=== PATIENT | male | born 1985 | race African-American/Black ===

== ENCOUNTER 2021-04-06 14:31 | Emergency (ER) | payer OTHER ==
[~2021-04-06] VITALS: Ht 167.6 cm; Wt 82.0 kg
[2021-04-06 15:43] LABS: BASOPHILS % 0.8 % (0.0-2.0); EOSINOPHILS % 1.5 % (0.0-5.0); HEMATOCRIT. 45.4 % (42.0-52.0); HEMOGLOBIN. 15.5 g/dL (14.0-18.0); LYMPHOCYTES % 38.2 % (20.0-50.0); MEAN CORPUSCULAR HEMOGLOBIN 32.3 pg (28.0-32.0); MEAN CORPUSCULAR VOLUME 94.6 fL (80.0-94.0); MEAN PLATELET VOLUME 8.5 fl (7.4-10.4); MONOCYTES % 12.4 % (2.0-8.0); NEUTROPHILS % 47.1 % (40.0-76.0); PLATELET 299 x1000/uL (130-400)
[2021-04-06 15:47] LABS: CHLORIDE 109 mEq/L (98-107)
[2021-04-06 15:52] LABS: ETHANOL BLOOD < 10 mg/dL
[2021-04-06 17:50] LABS: CLARITY URINE CLEAR (CLEAR); COLOR URINE YELLOW (YELLOW); KETONES URINE 1+ (NEGATIVE); LEUKOCYTE ESTERASE URINE NEGATIVE (NEGATIVE); NITRITE URINE NEGATIVE (NEGATIVE); OCCULT BLOOD URINE NEGATIVE (NEGATIVE); PH URINE 6.5 (4.5-8.0); PROTEIN URINE NEGATIVE (NEGATIVE); SPECIFIC GRAVITY URINE 1.031 (1.005-1.030)
[2021-04-06 18:01] LABS: *BENZODIAZEPINES SCREEN URINE NEGATIVE (NEGATIVE); *COCAINE SCREEN URINE NEGATIVE (NEGATIVE); METHADONE URINE SCREEN NEGATIVE (NEGATIVE); OPIATES URINE SCREEN NEGATIVE (NEGATIVE)
[2021-04-06 18:02] LABS: *AMPHETAMINES SCREEN URINE PRESUMTIVE POSITIVE (NEGATIVE); *BARBITURATES SCREEN URINE NEGATIVE (NEGATIVE); CANNABINOID URINE SCREEN PRESUMTIVE POSITIVE (NEGATIVE); PHENCYCLIDINE URINE SCREEN PRESUMTIVE POSITIVE (NEGATIVE)
[2021-04-07 00:45] VITALS: BP 137/85
== END 2021-04-07 01:07 | disposition home or self-care (01) ==
LOC: ER 14:41
DX: F99 Mental disorder, not otherwise specified (principal); Z86.59 Personal history of other mental and behavioral disorders
CPT/HCPCS: 36415; 80053; 80305; 80307; 80320; 80329; 81003; 85025; 99291; G0480

== ENCOUNTER 2022-02-08 23:15 | Emergency (ER) | payer MEDICAID, OTHER ==
[~2022-02-08] VITALS: Ht 172.7 cm; Wt 70.0 kg
[2022-02-09 00:51] LABS: BASOPHILS % 0.9 % (0.0-2.0); EOSINOPHILS % 2.8 % (0.0-5.0); HEMATOCRIT. 45.9 % (42.0-52.0); HEMOGLOBIN. 15.8 g/dL (14.0-18.0); LYMPHOCYTES % 32.6 % (20.0-50.0); MEAN CORPUSCULAR HEMOGLOBIN 31.1 pg (28.0-32.0); MEAN CORPUSCULAR VOLUME 90.3 fL (80.0-94.0); MONOCYTES % 10.1 % (2.0-8.0); NEUTROPHILS % 53.6 % (40.0-76.0); PLATELET 310 x1000/uL (130-400); RED BLOOD CELL COUNT 5.08 mill/uL (4.7-6.1); RED CELL DISTRIBUTION WIDTH 13.2 % (11.6-14.6)
[2022-02-09 00:58] LABS: CHLORIDE 103 mEq/L (98-107)
[2022-02-09 01:06] LABS: ETHANOL BLOOD < 10 mg/dL
[2022-02-09 04:10] VITALS: BP 128/87
== END 2022-02-09 04:30 | disposition home or self-care (01) ==
LOC: ER 23:15
DX: R10.9 Unspecified abdominal pain (principal); T43.625A Adverse effect of amphetamines, initial encounter; Y92.89 Other specified places as the place of occurrence of the external cause; F41.9 Anxiety disorder, unspecified; F20.9 Schizophrenia, unspecified
CPT/HCPCS: 36415; 74176; 80053; 80320; 85025; 99284; G0480

== ENCOUNTER 2022-02-09 10:02 | Emergency (ER) | payer MEDICAID, OTHER ==
[~2022-02-09] VITALS: Ht 170.2 cm; Wt 82.0 kg
[2022-02-09 10:11] VITALS: BP 114/79
== END 2022-02-09 11:47 | disposition home or self-care (01) ==
LOC: ER 10:02
DX: Z04.6 Encounter for general psychiatric examination, requested by authority (principal); Z59.00 Homelessness unspecified
CPT/HCPCS: 99281

== ENCOUNTER 2022-03-04 22:18 | Emergency (ER) | payer OTHER ==
[~2022-03-04] VITALS: Ht 170.2 cm; Wt 68.0 kg
[2022-03-04 22:22] VITALS: BP 141/91
== END 2022-03-05 04:52 | disposition left against medical advice (07) ==
LOC: ER 22:18
DX: Z53.21 Procedure and treatment not carried out due to patient leaving prior to being seen by health care provider (principal); R00.0 Tachycardia, unspecified
CPT/HCPCS: 93005

== ENCOUNTER 2024-03-11 20:26 | Inpatient (IN) | payer MEDICAID, OTHER ==
[~2024-03-11] VITALS: Ht 170.2 cm; Wt 72.0 kg
[2024-03-11 20:43] VITALS: O2SAT 99
[2024-03-11] MEDS ORDERED: VANCOMYCIN 1G PREMIX 200 ML IV ONE (21:45)
[2024-03-11 22:58] LABS: BASOPHILS % 0.6 % (0.0-2.0); EOSINOPHILS % 1.6 % (0.0-5.0); HEMATOCRIT. 37.8 % (42.0-52.0); HEMOGLOBIN. 12.4 g/dL (14.0-18.0); MEAN CORPUSCULAR HEMOGLOBIN 29.4 pg (28.0-32.0); MEAN CORPUSCULAR HGB CONC 32.7 g/dL (31.0-37.0); MEAN CORPUSCULAR VOLUME 89.9 fL (80.0-94.0); MEAN PLATELET VOLUME 7.3 fl (7.4-10.4); MONOCYTES % 5.1 % (2.0-8.0); NEUTROPHILS % 61.7 % (40.0-76.0); PLATELET 429 x1000/uL (130-400); RED BLOOD CELL COUNT 4.21 mill/uL (4.7-6.1); RED CELL DISTRIBUTION WIDTH 12.7 % (11.6-14.6); WHITE BLOOD COUNT 8.1 x1000/uL (4.5-11.0)
[2024-03-11 23:04] LABS: CHLORIDE 102 mEq/L (98-107); POTASSIUM 3.5 mEq/L (3.5-5.1); SODIUM 138 mEq/L (136-145)
[2024-03-11 23:05] LABS: CALCIUM 9.4 mg/dL (8.7-10.4); CARBON DIOXIDE 30 mEq/L (21-32)
[2024-03-11 23:10] LABS: CREATININE 0.7 mg/dL (0.6-1.3); GLUCOSE 104 mg/dL (70-105)
[2024-03-11 23:11] LABS: INR 1.1; PROTHROMBIN TIME 12.1 sec (9.6-11.0)
[2024-03-11 23:12] LABS: UREA NITROGEN BLOOD < 5 mg/dL (9-23)
[2024-03-11] MEDS: PIPERACILLIN/TAZO 3.375G/50ML 50 ML IV ONE (23:44)
[2024-03-12] MEDS: SODIUM CHLORIDE 0.9% 1000ML BAG (SEPSIS BOLUS) IV ONE (00:32)
[2024-03-12] MEDS: VANCOMYCIN 1G PREMIX 200 ML IV NR (02:20)
[2024-03-12] MEDS ORDERED: DOCUSATE SODIUM 100MG CAPSULE PO PRN (02:30)
[2024-03-12] MEDS ORDERED: ACETAMINOPHEN 650MG/20.3ML UDC GT PRN (02:30)
[2024-03-12] MEDS ORDERED: IPRATROPIUM/ALBUTEROL 0.5-3(2.5)MG/3ML NEB HHN PRN (02:30)
[2024-03-12] MEDS ORDERED: ONDANSETRON HCL 4MG/2ML INJ IV PRN (02:30)
[2024-03-12] MEDS ORDERED: CLONIDINE 0.1MG TABLET PO PRN (02:30)
[2024-03-12] MEDS ORDERED: GUAIFENESIN 200MG/10ML SUGAR FREE UDC PO PRN (02:30)
[2024-03-12] MEDS ORDERED: CEFTRIAXONE 1GM/50ML 50 ML IV SCH (06:00)
[2024-03-12] MEDS: PIPERACILLIN/TAZO 3.375G/50ML 50 ML IV SCH (07:39)
[2024-03-12 09:22] VITALS: BP 101/96; PULSE 92; RESP 17; TEMP 98.2
[2024-03-12] MEDS: PANTOPRAZOLE SODIUM 40 MG/VIAL IV SCH (09:34)
[2024-03-12 10:38] LABS: BASOPHILS % 0.5 % (0.0-2.0); EOSINOPHILS % 2.1 % (0.0-5.0); HEMATOCRIT. 35.9 % (42.0-52.0); HEMOGLOBIN. 11.8 g/dL (14.0-18.0); LYMPHOCYTES % 24.6 % (20.0-50.0); MEAN CORPUSCULAR HEMOGLOBIN 29.4 pg (28.0-32.0); MEAN CORPUSCULAR VOLUME 89.3 fL (80.0-94.0); MEAN PLATELET VOLUME 7.6 fl (7.4-10.4); MONOCYTES % 5.2 % (2.0-8.0); NEUTROPHILS % 67.6 % (40.0-76.0); PLATELET 382 x1000/uL (130-400); RED BLOOD CELL COUNT 4.02 mill/uL (4.7-6.1); RED CELL DISTRIBUTION WIDTH 12.7 % (11.6-14.6); WHITE BLOOD COUNT 6.8 x1000/uL (4.5-11.0)
[2024-03-12 10:54] LABS: CHLORIDE 104 mEq/L (98-107); POTASSIUM 3.7 mEq/L (3.5-5.1); SODIUM 139 mEq/L (136-145)
[2024-03-12 10:55] LABS: CALCIUM 9.1 mg/dL (8.7-10.4); CARBON DIOXIDE 30 mEq/L (21-32)
[2024-03-12 11:00] LABS: CREATININE 0.6 mg/dL (0.6-1.3); GLUCOSE 127 mg/dL (70-105); IRON 46 ug/dL (65-175); TRIGLYCERIDE 59 mg/dL (0-150); UREA NITROGEN BLOOD 6 mg/dL (9-23)
[2024-03-12 11:01] LABS: LDL CHOLESTEROL 75 mg/dL (5-100)
[2024-03-12 11:02] LABS: CHOLESTEROL 126 mg/dL (<200); CREATINE KINASE 58 IU/L (46-171); HDL CHOLESTEROL 43 mg/dL (>55)
[2024-03-12 11:03] LABS: TOTAL IRON BINDING CAPACITY 284 ug/dl (250-425)
[2024-03-12 11:04] LABS: T4 FREE 1.53 ng/dL (0.89-1.76)
[2024-03-12 11:05] LABS: THYROID STIMULATING HORMONE 1.19 uIU/mL (0.55-4.78)
[2024-03-12 11:24] LABS: TROPONIN I HIGH SENSITIVITY < 4 ng/L (3.0-53)
[2024-03-12 22:46] LABS: CREATINE KINASE 67 IU/L (46-171); TROPONIN I HIGH SENSITIVITY < 4 ng/L (3.0-53)
[2024-03-14] MEDS ORDERED: LINE600T11 MT (12:49)
== END 2024-03-12 11:09 | disposition left against medical advice (07) | DRG 383 ==
LOC: ER 20:26 → EDBEDREQTM 03-12 00:04 → EDBEDREQ 03-12 00:04 → 5WST 03-12 03:59
PROVIDERS: ADMIT Internal Medicine; ATTEND Internal Medicine
DX: L03.116 Cellulitis of left lower limb (principal); D64.9 Anemia, unspecified; E78.5 Hyperlipidemia, unspecified; F17.210 Nicotine dependence, cigarettes, uncomplicated; Z53.29 Procedure and treatment not carried out because of patient's decision for other reasons; F20.9 Schizophrenia, unspecified; J45.909 Unspecified asthma, uncomplicated; Z99.3 Dependence on wheelchair
CPT/HCPCS: 36415; 73610; 80048; 80061; 82550; 82728; 83540; 83550; 83605; 84145; 84439; 84443; 84484; 85025; 86850; 86900; 93970; 99291; J2470; J2543; J3370; J7030

== ENCOUNTER 2024-03-16 19:29 | Inpatient (IN) | payer MEDICAID ==
[~2024-03-16] VITALS: Ht 170.2 cm; Wt 72.6 kg
[~2024-03-16 19:29] MED LIST: LINE600T11 MT
[2024-03-16 19:45] VITALS: O2SAT 99
[2024-03-16 20:00] VITALS: BP 117/81; PULSE 97; RESP 18; TEMP 97.9
[2024-03-16 20:18] LABS: BASOPHILS % 0.7 % (0.0-2.0); HEMOGLOBIN. 11.4 g/dL (14.0-18.0); LYMPHOCYTES % 29.7 % (20.0-50.0); MEAN CORPUSCULAR HEMOGLOBIN 30.9 pg (28.0-32.0); MEAN CORPUSCULAR HGB CONC 34.6 g/dL (31.0-37.0); MEAN CORPUSCULAR VOLUME 89.3 fL (80.0-94.0); MEAN PLATELET VOLUME 7.6 fl (7.4-10.4); MONOCYTES % 9.8 % (2.0-8.0); NEUTROPHILS % 56.8 % (40.0-76.0); PLATELET 346 x1000/uL (130-400); RED BLOOD CELL COUNT 3.69 mill/uL (4.7-6.1); RED CELL DISTRIBUTION WIDTH 12.9 % (11.6-14.6); WHITE BLOOD COUNT 7.5 x1000/uL (4.5-11.0)
[2024-03-16 20:25] LABS: CHLORIDE 104 mEq/L (98-107); POTASSIUM 3.9 mEq/L (3.5-5.1); SODIUM 139 mEq/L (136-145)
[2024-03-16 20:26] LABS: CARBON DIOXIDE 30 mEq/L (21-32)
[2024-03-16 20:27] LABS: CALCIUM 8.9 mg/dL (8.7-10.4)
[2024-03-16] MEDS: CEFTRIAXONE 1GM/50ML 50 ML IV ONE (20:27)
[2024-03-16 20:32] LABS: CREATININE 0.7 mg/dL (0.6-1.3); GLUCOSE 102 mg/dL (70-105); UREA NITROGEN BLOOD 13 mg/dL (9-23)
[2024-03-16] MEDS: VANCOMYCIN 1.5GM/250ML 250 ML IV SCH (22:24)
[2024-03-16] MEDS ORDERED: IPRATROPIUM/ALBUTEROL 0.5-3(2.5)MG/3ML NEB HHN PRN (22:30)
[2024-03-16] MEDS ORDERED: ACETAMINOPHEN 325MG TABLET PO PRN ×2 (22:30)
[2024-03-16] MEDS ORDERED: GUAIFENESIN 200MG/10ML SUGAR FREE UDC PO PRN (22:30)
[2024-03-16] MEDS ORDERED: CLONIDINE 0.1MG TABLET PO PRN (22:30)
[2024-03-16] MEDS ORDERED: ONDANSETRON HCL 4MG/2ML INJ IV PRN (22:30)
[2024-03-16] MEDS ORDERED: MAGNESIUM/ALUMINUM HYDROXIDE/SIMETHICONE 30ML UDC PO PRN (22:30)
[2024-03-16] MEDS ORDERED: DOCUSATE SODIUM 100MG CAPSULE PO PRN (22:30)
[2024-03-17] VITALS: BP 117/81; PULSE 97; RESP 18; TEMP 97.9
[2024-03-17 00:28] VITALS: BP 117/81; PULSE 97; RESP 18; TEMP 97.9
[2024-03-17] MEDS: MVI, ADULT NO.1 10 ML, FOLIC ACID 1 MG, THIAMINE HCL 100 MG in SODIUM CHLORIDE 0.9% 1,0... IV NR (01:16)
[2024-03-17 04:00] VITALS: BP_SYST 118; BP_SYST 127; BP_DIAS 69; BP_DIAS 76; PULSE 72; PULSE 80; RESP 18; TEMP 97.6; TEMP 97.7
[2024-03-17] MEDS ORDERED: VANCOMYCIN 1G PREMIX 200 ML IV SCH (06:00)
[2024-03-17 07:03] LABS: CHLORIDE 104 mEq/L (98-107); POTASSIUM 3.8 mEq/L (3.5-5.1); SODIUM 139 mEq/L (136-145)
[2024-03-17 07:04] LABS: CALCIUM 9.1 mg/dL (8.7-10.4); CARBON DIOXIDE 29 mEq/L (21-32)
[2024-03-17 07:09] LABS: CREATININE 0.6 mg/dL (0.6-1.3); GLUCOSE 101 mg/dL (70-105); UREA NITROGEN BLOOD 11 mg/dL (9-23)
[2024-03-17 07:11] LABS: PHOSPHORUS 3.5 mg/dL (2.5-4.9)
[2024-03-17 07:35] LABS: BASOPHILS % 0.4 % (0.0-2.0); EOSINOPHILS % 2.3 % (0.0-5.0); HEMATOCRIT. 30.9 % (42.0-52.0); HEMOGLOBIN. 10.6 g/dL (14.0-18.0); LYMPHOCYTES % 24.4 % (20.0-50.0); MEAN CORPUSCULAR HEMOGLOBIN 30.6 pg (28.0-32.0); MEAN CORPUSCULAR HGB CONC 34.2 g/dL (31.0-37.0); MEAN CORPUSCULAR VOLUME 89.3 fL (80.0-94.0); MEAN PLATELET VOLUME 7.7 fl (7.4-10.4); NEUTROPHILS % 62.9 % (40.0-76.0); PLATELET 289 x1000/uL (130-400); RED BLOOD CELL COUNT 3.46 mill/uL (4.7-6.1); RED CELL DISTRIBUTION WIDTH 12.9 % (11.6-14.6); WHITE BLOOD COUNT 5.7 x1000/uL (4.5-11.0)
[2024-03-17 08:00] VITALS: BP 124/66; PULSE 78; RESP 18; TEMP 97.2
[2024-03-17] MEDS: NICOTINE 7MG PATCH TD SCH (09:04)
[2024-03-17] MEDS: FERROUS SULFATE 325MG TABLET PO SCH (09:04)
[2024-03-17] MEDS: ENOXAPARIN 40MG/0.4ML SYR SUBCUT SCH (09:05)
[2024-03-17] MEDS ORDERED: CEFTRIAXONE 1GM/50ML 50 ML IV SCH (10:00)
[2024-03-17] MEDS: MAGNESIUM 1 G PREMIX 100 ML IV NR (12:09)
[2024-03-17 16:00] VITALS: BP 131/91; PULSE 101; RESP 20; TEMP 97.4
[2024-03-17] MEDS: KETOROLAC 15MG/ML VIAL IV PRN (17:31)
[2024-03-17 20:00] VITALS: BP 114/70; PULSE 74; RESP 18; TEMP 98
[2024-03-18] VITALS: BP 129/78; PULSE 82; RESP 18; TEMP 98
[2024-03-18 04:00] VITALS: BP 108/71; PULSE 80; RESP 19; TEMP 97.5
[2024-03-18 07:35] LABS: BASOPHILS % 0.5 % (0.0-2.0); EOSINOPHILS % 2.7 % (0.0-5.0); HEMATOCRIT. 32.5 % (42.0-52.0); HEMOGLOBIN. 11.1 g/dL (14.0-18.0); LYMPHOCYTES % 33.4 % (20.0-50.0); MEAN CORPUSCULAR HEMOGLOBIN 30.6 pg (28.0-32.0); MEAN CORPUSCULAR HGB CONC 34.2 g/dL (31.0-37.0); MEAN CORPUSCULAR VOLUME 89.6 fL (80.0-94.0); MEAN PLATELET VOLUME 7.7 fl (7.4-10.4); NEUTROPHILS % 54.4 % (40.0-76.0); PLATELET 296 x1000/uL (130-400); RED BLOOD CELL COUNT 3.62 mill/uL (4.7-6.1); RED CELL DISTRIBUTION WIDTH 12.8 % (11.6-14.6); WHITE BLOOD COUNT 4.7 x1000/uL (4.5-11.0)
[2024-03-18 07:42] LABS: CARBON DIOXIDE 30 mEq/L (21-32); CHLORIDE 106 mEq/L (98-107); POTASSIUM 3.9 mEq/L (3.5-5.1); SODIUM 140 mEq/L (136-145)
[2024-03-18 07:43] LABS: CALCIUM 9.5 mg/dL (8.7-10.4)
[2024-03-18 07:47] LABS: CREATININE 0.6 mg/dL (0.6-1.3)
[2024-03-18 07:48] LABS: GLUCOSE 98 mg/dL (70-105); UREA NITROGEN BLOOD 7 mg/dL (9-23)
[2024-03-18 07:50] LABS: PHOSPHORUS 4.8 mg/dL (2.5-4.9)
[2024-03-18 08:00] VITALS: BP 118/75; PULSE 69; RESP 20; TEMP 98.2
[2024-03-18] MEDS ORDERED: DICLOFENAC SODIUM 75MG DR TABLET PO SCH (11:00)
[2024-03-18 12:00] VITALS: BP 120/69; PULSE 67; RESP 20; TEMP 98.4
[2024-03-18 16:00] VITALS: BP 117/65; PULSE 70; RESP 20; TEMP 98.2
== END 2024-03-18 16:30 | disposition left against medical advice (07) | DRG 344 ==
LOC: ER 19:29 → 6EST 21:29
PROVIDERS: ADMIT Preventive Medicine Clinical Informatics; ATTEND Preventive Medicine Clinical Informatics
DX: M00.862 Arthritis due to other bacteria, left knee (principal); L03.116 Cellulitis of left lower limb; D50.9 Iron deficiency anemia, unspecified; D72.821 Monocytosis (symptomatic); F17.210 Nicotine dependence, cigarettes, uncomplicated; F20.9 Schizophrenia, unspecified; M24.562 Contracture, left knee; F31.9 Bipolar disorder, unspecified; J45.909 Unspecified asthma, uncomplicated; Z53.29 Procedure and treatment not carried out because of patient's decision for other reasons; Z59.00 Homelessness unspecified; Z99.3 Dependence on wheelchair
CPT/HCPCS: 36415; 73560; 73630; 80048; 80320; 83036; 83735; 83880; 84100; 84145; 85025; 85651; 93971; 97166; 99285; J0696; J1650; J1885; J3370; J3411; J3475; J3490; J7030; G0480

== ENCOUNTER 2024-06-04 18:23 | Emergency (ER) | payer MEDICAID, OTHER ==
[~2024-06-04] VITALS: Ht 170.2 cm; Wt 77.0 kg
[2024-06-04 18:26] VITALS: O2SAT 99
[2024-06-04 18:32] VITALS: BP 139/73; PULSE 84; RESP 18; TEMP 98.1; O2SAT 98
== END 2024-06-04 23:46 | disposition left against medical advice (07) ==
LOC: ER 18:23
DX: M25.562 Pain in left knee (principal); Z53.21 Procedure and treatment not carried out due to patient leaving prior to being seen by health care provider
CPT/HCPCS: 71045; 93005

== ENCOUNTER 2024-06-05 12:40 | Emergency (ER) | payer MEDICAID, OTHER ==
[~2024-06-05] VITALS: Ht 172.7 cm; Wt 81.0 kg
[2024-06-05 12:44] VITALS: O2SAT 99
[2024-06-05 13:08] VITALS: BP 134/83; PULSE 118; RESP 18; TEMP 98.1; O2SAT 98
[2024-06-06] MEDS ORDERED: TOPUD PO (05:54)
== END 2024-06-05 13:27 | disposition left against medical advice (07) ==
LOC: ER 12:49
DX: M25.562 Pain in left knee (principal); Z53.21 Procedure and treatment not carried out due to patient leaving prior to being seen by health care provider

== ENCOUNTER 2024-06-06 01:29 | Emergency (ER) | payer OTHER ==
[~2024-06-06] VITALS: Ht 170.2 cm; Wt 81.0 kg
[2024-06-06 01:38] VITALS: O2SAT 98
[2024-06-06 02:14] VITALS: BP 122/79; PULSE 80; RESP 16; TEMP 98; O2SAT 100
[2024-06-06] MEDS ORDERED: TOPUD PO (05:54)
== END 2024-06-06 07:03 | disposition home or self-care (01) ==
LOC: ER 01:29
DX: R60.0 Localized edema (principal); J45.909 Unspecified asthma, uncomplicated
CPT/HCPCS: 99282

== ENCOUNTER 2024-06-06 10:51 | Emergency (ER) | payer OTHER ==
[~2024-06-06] VITALS: Ht 170.2 cm; Wt 80.0 kg
[~2024-06-06 10:51] MED LIST changes: +TOPUD PO
[2024-06-06 10:59] VITALS: O2SAT 99
[2024-06-06 11:01] VITALS: BP 164/67; PULSE 80; RESP 16; TEMP 98.1; O2SAT 100
[2024-06-06 12:32] LABS: HEMOGLOBIN. 13.8 g/dL (14.0-18.0); LYMPHOCYTES % 26.9 % (20.0-50.0); MEAN CORPUSCULAR HEMOGLOBIN 29.4 pg (28.0-32.0); MEAN CORPUSCULAR HGB CONC 33.7 g/dL (31.0-37.0); MEAN CORPUSCULAR VOLUME 87.2 fL (80.0-94.0); MONOCYTES % 6.6 % (2.0-8.0); NEUTROPHILS % 61.5 % (40.0-76.0); PLATELET 359 x1000/uL (130-400); RED CELL DISTRIBUTION WIDTH 15.7 % (11.6-14.6); WHITE BLOOD COUNT 6.7 x1000/uL (4.5-11.0)
[2024-06-06 12:40] LABS: CHLORIDE 104 mEq/L (98-107); POTASSIUM 3.7 mEq/L (3.5-5.1); SODIUM 142 mEq/L (136-145)
[2024-06-06 12:41] LABS: CARBON DIOXIDE 31 mEq/L (21-32)
[2024-06-06 12:42] LABS: CALCIUM 9.4 mg/dL (8.7-10.4)
[2024-06-06 12:46] LABS: CREATININE 0.8 mg/dL (0.6-1.3); GLUCOSE 91 mg/dL (70-105)
[2024-06-06 12:47] LABS: UREA NITROGEN BLOOD 13 mg/dL (9-23)
[2024-06-06 12:48] LABS: ALANINE AMINOTRANSFERASE 17 IU/L (10-49); ALBUMIN 4.1 g/dL (3.2-4.8); ASPARTATE AMINOTRANSFERASE 19 IU/L (<34)
[2024-06-06 12:49] LABS: BILIRUBIN TOTAL 0.2 mg/dL (0.1-1.0); PROTEIN TOTAL 7.8 g/dL (6.0-8.3)
[2024-06-06 12:51] LABS: TROPONIN I HIGH SENSITIVITY < 4 ng/L (3.0-53)
== END 2024-06-06 13:43 | disposition home or self-care (01) ==
LOC: ER 10:57
DX: M79.605 Pain in left leg (principal); M79.604 Pain in right leg; R60.0 Localized edema; J45.909 Unspecified asthma, uncomplicated
CPT/HCPCS: 36415; 80053; 83880; 84484; 85025; 85379; 93970; 99284

== ENCOUNTER 2024-06-06 21:59 | Emergency (ER) | payer OTHER ==
[~2024-06-06] VITALS: Ht 172.7 cm; Wt 75.0 kg
[2024-06-06 22:05] VITALS: BP 156/73; PULSE 85; TEMP 97.4; O2SAT 99
[2024-06-06 22:45] VITALS: RESP 18
== END 2024-06-06 23:05 | disposition home or self-care (01) ==
LOC: ER 21:59
DX: M79.10 Myalgia, unspecified site (principal)
CPT/HCPCS: 99281

== ENCOUNTER 2024-06-21 01:45 | Emergency (ER) | payer OTHER ==
[~2024-06-21] VITALS: Ht 172.7 cm; Wt 71.0 kg
[2024-06-21 02:06] VITALS: BP 141/84; TEMP 98.4; O2SAT 99
[2024-06-21 02:08] VITALS: PULSE 102
== END 2024-06-21 06:36 | disposition home or self-care (01) ==
LOC: ER 02:17
DX: G89.29 Other chronic pain (principal); G40.909 Epilepsy, unspecified, not intractable, without status epilepticus; J45.909 Unspecified asthma, uncomplicated
CPT/HCPCS: 99281

== ENCOUNTER 2024-06-25 02:58 | Emergency (ER) | payer OTHER ==
[~2024-06-25] VITALS: Ht 170.2 cm; Wt 78.0 kg
[2024-06-25 03:01] VITALS: O2SAT 100
[2024-06-25] MEDS ORDERED: TOPUD PO (05:13)
[2024-06-25 06:40] VITALS: BP 115/72; PULSE 81; RESP 16; TEMP 36.78072; O2SAT 99
== END 2024-06-25 06:57 | disposition home or self-care (01) ==
LOC: ER 02:58
DX: M25.562 Pain in left knee (principal)
CPT/HCPCS: 99283

== ENCOUNTER 2024-06-27 00:59 | Emergency (ER) | payer OTHER ==
[~2024-06-27] VITALS: Ht 170.2 cm; Wt 78.9 kg
[2024-06-27 01:09] VITALS: O2SAT 98
[2024-06-27 01:12] VITALS: BP 139/96; PULSE 94; RESP 18; TEMP 98.6; O2SAT 99
[2024-06-27] MEDS ORDERED: IBUP-2028 MT (20:30)
== END 2024-06-27 01:30 | disposition left against medical advice (07) ==
LOC: ER 01:14
DX: R07.89 Other chest pain (principal); Z53.21 Procedure and treatment not carried out due to patient leaving prior to being seen by health care provider
CPT/HCPCS: 71045; 93005

== ENCOUNTER 2024-06-27 18:36 | Emergency (ER) | payer OTHER ==
[~2024-06-27] VITALS: Ht 170.2 cm; Wt 80.0 kg
[2024-06-27 18:43] VITALS: O2SAT 97
[2024-06-27 19:30] VITALS: BP 135/78; PULSE 87; TEMP 98.5; O2SAT 100
[2024-06-27] MEDS: IBUPROFEN 400MG TABLET PO ONE (20:30)
[2024-06-27] MEDS ORDERED: IBUP-2028 MT (20:30)
[2024-06-27 20:40] VITALS: RESP 18
== END 2024-06-27 21:37 | disposition home or self-care (01) ==
LOC: ER 18:36
DX: M79.10 Myalgia, unspecified site (principal); R05.9 Cough, unspecified; E11.9 Type 2 diabetes mellitus without complications; F20.9 Schizophrenia, unspecified; I10 Essential (primary) hypertension; J45.909 Unspecified asthma, uncomplicated; Z59.00 Homelessness unspecified
CPT/HCPCS: 99282

== ENCOUNTER 2024-06-28 00:34 | Emergency (ER) | payer OTHER ==
[~2024-06-28 00:34] MED LIST changes: +IBUP-2028 MT
[2024-06-28 00:39] VITALS: PULSE 101; O2SAT 99
== END 2024-06-28 10:53 | disposition left against medical advice (07) ==
LOC: ER 00:34
DX: Z53.21 Procedure and treatment not carried out due to patient leaving prior to being seen by health care provider (principal)
CPT/HCPCS: 71045; 93005

== ENCOUNTER 2024-06-29 00:38 | Emergency (ER) | payer OTHER ==
[~2024-06-29] VITALS: Ht 170.2 cm; Wt 79.3 kg
[2024-06-29 00:59] VITALS: O2SAT 97
[2024-06-29 01:19] VITALS: BP 146/65; PULSE 84; RESP 16; TEMP 98.2; O2SAT 99
[2024-06-30] MEDS ORDERED: IBUP-2029 MT (23:57)
== END 2024-06-29 07:25 | disposition left against medical advice (07) ==
LOC: ER 00:38
DX: Z00.00 Encounter for general adult medical examination without abnormal findings (principal); Z53.21 Procedure and treatment not carried out due to patient leaving prior to being seen by health care provider
CPT/HCPCS: 99283

== ENCOUNTER 2024-06-29 17:25 | Emergency (ER) | payer OTHER ==
[~2024-06-29] VITALS: Ht 170.2 cm; Wt 79.0 kg
[2024-06-29 19:13] VITALS: BP 133/77; PULSE 80; RESP 16; O2SAT 100
[2024-06-29 20:53] VITALS: TEMP 98
[2024-06-29] MEDS: ACETAMINOPHEN 325MG TABLET PO ONE (20:53)
[2024-06-30] MEDS ORDERED: IBUP-2029 MT (23:57)
== END 2024-06-29 22:12 | disposition home or self-care (01) ==
LOC: ER 17:25
DX: M79.18 Myalgia, other site (principal); I10 Essential (primary) hypertension; F20.9 Schizophrenia, unspecified; E11.9 Type 2 diabetes mellitus without complications; J45.909 Unspecified asthma, uncomplicated; F31.9 Bipolar disorder, unspecified
CPT/HCPCS: 99282

== ENCOUNTER 2024-06-29 23:42 | Emergency (ER) | payer OTHER ==
[2024-06-30] MEDS ORDERED: IBUP-2029 MT (23:57)
== END 2024-06-30 00:38 | disposition home or self-care (01) ==
LOC: ER 23:49
DX: M79.18 Myalgia, other site (principal); I10 Essential (primary) hypertension; F20.9 Schizophrenia, unspecified; E11.9 Type 2 diabetes mellitus without complications; F31.9 Bipolar disorder, unspecified; J45.909 Unspecified asthma, uncomplicated
CPT/HCPCS: 99281

== ENCOUNTER 2024-06-30 19:09 | Emergency (ER) | payer OTHER ==
[~2024-06-30] VITALS: Ht 170.2 cm; Wt 79.0 kg
[2024-06-30 19:11] VITALS: O2SAT 98
[2024-06-30 19:14] VITALS: TEMP 98.8; O2SAT 98
[2024-06-30] MEDS ORDERED: IBUPROFEN 600MG TABLET PO STA (19:31)
[2024-06-30 21:38] VITALS: BP 110/47; PULSE 99; RESP 16
[2024-06-30] MEDS: IBUPROFEN 600MG TABLET PO NR (21:38)
[2024-06-30] MEDS ORDERED: IBUP-2029 MT (23:57)
== END 2024-07-01 00:30 | disposition home or self-care (01) ==
LOC: ER 19:09
DX: J06.9 Acute upper respiratory infection, unspecified (principal); B97.89 Other viral agents as the cause of diseases classified elsewhere; I10 Essential (primary) hypertension; E11.9 Type 2 diabetes mellitus without complications; J45.909 Unspecified asthma, uncomplicated; Z20.822 Contact with and (suspected) exposure to COVID-19
CPT/HCPCS: 87426; 87804; 99283

== ENCOUNTER 2024-07-01 01:02 | Emergency (ER) | payer OTHER ==
[~2024-07-01] VITALS: Ht 175.3 cm; Wt 91.0 kg
[~2024-07-01 01:02] MED LIST changes: +IBUP-2029 MT
[2024-07-01 01:07] VITALS: O2SAT 99
[2024-07-01 01:59] VITALS: BP 134/76; PULSE 93; RESP 16; TEMP 98.2; O2SAT 96
== END 2024-07-01 03:28 | disposition left against medical advice (07) ==
LOC: ER 01:02
DX: J06.9 Acute upper respiratory infection, unspecified (principal); J45.909 Unspecified asthma, uncomplicated; I10 Essential (primary) hypertension; E11.9 Type 2 diabetes mellitus without complications; F41.9 Anxiety disorder, unspecified; F31.9 Bipolar disorder, unspecified
CPT/HCPCS: 99281

== ENCOUNTER 2024-07-10 07:28 | Emergency (ER) | payer OTHER ==
[~2024-07-10] VITALS: Ht 172.7 cm; Wt 85.0 kg
[2024-07-10 07:43] VITALS: O2SAT 99
[2024-07-10 08:12] VITALS: BP 129/87; PULSE 88; RESP 18; TEMP 97.9; O2SAT 98
[2024-07-10 10:29] LABS: BASOPHILS % 0.8 % (0.0-2.0); CHLORIDE 103 mEq/L (98-107); DIFFERENTIAL COMMENT 0; EOSINOPHILS % 0.7 % (0.0-5.0); HEMATOCRIT. 42.7 % (42.0-52.0); HEMOGLOBIN. 14.4 g/dL (14.0-18.0); LYMPHOCYTES % 27.1 % (20.0-50.0); MEAN CORPUSCULAR HEMOGLOBIN 30.1 pg (28.0-32.0); MEAN CORPUSCULAR HGB CONC 33.7 g/dL (31.0-37.0); MEAN CORPUSCULAR VOLUME 89.3 fL (80.0-94.0); MEAN PLATELET VOLUME 8.5 fl (7.4-10.4); MONOCYTES % 8.8 % (2.0-8.0); NEUTROPHILS % 62.6 % (40.0-76.0); PLATELET 393 x1000/uL (130-400); POTASSIUM 3.4 mEq/L (3.5-5.1); RED BLOOD CELL COUNT 4.78 mill/uL (4.7-6.1); RED CELL DISTRIBUTION WIDTH 16.9 % (11.6-14.6); SODIUM 140 mEq/L (136-145); WHITE BLOOD COUNT 6.6 x1000/uL (4.5-11.0)
[2024-07-10 10:30] LABS: CARBON DIOXIDE 29 mEq/L (21-32)
[2024-07-10 10:31] LABS: CALCIUM 9.5 mg/dL (8.7-10.4)
[2024-07-10 10:35] LABS: CREATININE 1.1 mg/dL (0.6-1.3); GLUCOSE 116 mg/dL (70-105); UREA NITROGEN BLOOD 12 mg/dL (9-23)
[2024-07-10] MEDS: POTASSIUM CHLORIDE 10MEQ TABLET SR PO ONE (12:04)
== END 2024-07-10 12:09 | disposition home or self-care (01) ==
LOC: ER 07:28
DX: R60.0 Localized edema (principal); E11.9 Type 2 diabetes mellitus without complications; I10 Essential (primary) hypertension; J45.909 Unspecified asthma, uncomplicated; F41.9 Anxiety disorder, unspecified
CPT/HCPCS: 36415; 73630; 80048; 85025; 93970; 99284

== ENCOUNTER 2024-07-11 20:17 | Emergency (ER) | payer OTHER ==
[~2024-07-11] VITALS: Ht 172.7 cm; Wt 75.0 kg
[2024-07-11 20:29] VITALS: O2SAT 99
[2024-07-12 01:58] VITALS: BP 136/71; PULSE 86; RESP 18; TEMP 37.00296; O2SAT 99
== END 2024-07-12 02:06 | disposition home or self-care (01) ==
LOC: ER 20:17
DX: R06.02 Shortness of breath (principal); J45.909 Unspecified asthma, uncomplicated; E11.9 Type 2 diabetes mellitus without complications; I10 Essential (primary) hypertension; Z79.899 Other long term (current) drug therapy
CPT/HCPCS: 99281

== ENCOUNTER 2024-07-18 03:14 | Emergency (ER) | payer OTHER ==
[2024-07-18] MEDS: IBUPROFEN 600MG TABLET PO ONE (04:41)
== END 2024-07-18 04:44 | disposition home or self-care (01) ==
LOC: ER 03:14
DX: M79.10 Myalgia, unspecified site (principal); I10 Essential (primary) hypertension; E11.9 Type 2 diabetes mellitus without complications; J45.909 Unspecified asthma, uncomplicated; F41.9 Anxiety disorder, unspecified; Z59.00 Homelessness unspecified; Z86.59 Personal history of other mental and behavioral disorders
CPT/HCPCS: 99282

== ENCOUNTER 2024-07-30 20:26 | Emergency (ER) | payer OTHER ==
[~2024-07-30] VITALS: Ht 167.6 cm; Wt 73.0 kg
[2024-07-30 20:28] VITALS: BP 152/71; PULSE 111; RESP 18; TEMP 98.2; O2SAT 99
== END 2024-07-31 02:00 | disposition left against medical advice (07) ==
LOC: ER 20:26
DX: F41.9 Anxiety disorder, unspecified (principal); J45.909 Unspecified asthma, uncomplicated; F10.90 Alcohol use, unspecified, uncomplicated; Y90.9 Presence of alcohol in blood, level not specified
CPT/HCPCS: 99283